=== PATIENT | female | born 2000 ===

== ENCOUNTER 2024-11-10 22:07 | Outpatient (CLI) | payer OTHER ==
[~2024-11-10] VITALS: Ht 170.2 cm; Wt 81.6 kg
[2024-11-10 22:36] VITALS: BP 112/66
[2024-11-11 00:23] LABS: KETONE, URINE AUTO RFX TRACE mg/dL (NEGATIVE); RBC, URINE AUTO RFX 1 /HPF (0-3); SQUAM EPITHELIAL CELL UR AURFX 5 /HPF (0-6); WBC, URINE AUTO RFX 7 /HPF (0-3)
[2024-11-11 00:25] LABS: LEUKOCYTE ESTERASE UR AUTO RFX TRACE (NEGATIVE); NITRITE, URINE AUTO RFX POSITIVE (NEGATIVE)
[2024-11-11 00:57] VITALS: BP 115/80
== END 2024-11-11 02:18 | disposition home or self-care (01) ==
LOC: M LDO 22:07
PROVIDERS: ATTEND Obstetrics & Gynecology
DX: O47.03 False labor before 37 completed weeks of gestation, third trimester (principal); O24.013 Pre-existing type 1 diabetes mellitus, in pregnancy, third trimester; Z3A.30 30 weeks gestation of pregnancy
CPT/HCPCS: 59025; 76817; 81001; 82731; 87088; 87186; G0463